=== PATIENT | female | born 1965 | race Caucasian/White ===

== ENCOUNTER 2019-02-14 18:03 | Emergency (ER) | payer OTHER ==
[2019-02-14 18:22] VITALS: BP 148/86; PULSE 95; TEMP 99; BMI 25.1
--- NOTE | 2019-02-14 18:23 | PDOC ---
History of Present Illness - General Chief Complaint: Injury Stated Complaint: LEFT HAND INJURY Time Seen by Provider: 02/14/19 18:12 - History of Present Illness Initial Comments: 02/14/19 18:16 53F with pmh of PA on Clopidogrel, HTN and HLD presents to the ED after fall on her left hand 5 days ago while playing softball. She iced her hand the next couple days but stopped after that. She played softball again yesterday and her hand was much more red and swollen today. She denies injuring herself yesterday. She uses her left hand to catch the ball. She is right handed. Denies taking anything for the pain. Did not injure anything else when she fell 5 days ago. Smokes 1 pack a day for the past 30 years. Occasional alcohol use, no recreational drug use. Past History - Past Medical History Allergies/Adverse Reactions: Allergies Allergy/AdvReac Type Severity Reaction Status Date / Time Penicillins Allergy Intermediate Rash Verified 02/14/19 18:03 Home Medications: Ambulatory Orders Aspirin [ASA -] 325 mg PO DAILY 07/02/14 Clopidogrel Bisulfate [Plavix -] 75 mg PO DAILY 07/02/14 Metoprolol Succinate [Toprol XL -] 25 mg PO BID 07/02/14 Atorvastatin Ca [Lipitor] 80 mg PO HS 02/14/19 Cardiac Disorders: Yes (CAD, PA) COPD: No HTN: Yes Hypercholesterolemia: Yes - Surgical History Cardiac Surgery: Yes (cardiac stent) - Immunization History Td Vaccination: No Immunization Up to Date: Yes - Suicide/Smoking/Psychosocial Hx Smoking Status: Yes Smoking History: Current every day smoker Have you smoked in the past 12 months: Yes Number of Cigarettes Smoked Daily: 20 Information on smoking cessation initiated: Yes Hx Alcohol Use: (occasional) Review of Systems - Review of Systems Able to Perform ROS?: Yes Is the patient limited [place] Islander proficient: No Constitutional: No: Symptoms Reported HEENTM: No: Symptoms Reported Respiratory: No: Symptoms reported Cardiac (ROS): No: Symptoms Reported ABD/GI: No: Symptoms Reported : No: Symptoms Reported Musculoskeletal: Yes: See HPI Integumentary: No: Symptoms Reported Neurological: No: Symptoms reported All Other Systems: Reviewed and Negative *Physical Exam - Vital Signs Last Vital Signs Temp Pulse Resp BP Pulse Ox 99 F 95 H 18 148/86 97 02/14/19 18:03 02/14/19 18:03 02/14/19 18:03 02/14/19 18:03 02/14/19 18:03 - Physical Exam General Appearance: Yes: Nourished, Appropriately Dressed. No: Apparent Distress HEENT: positive: EOMI, KIZZY, Pharynx Normal Respiratory/Chest: positive: Lungs Clear, Normal Breath Sounds. negative: Chest Tender, Respiratory Distress Cardiovascular: positive: Regular Rhythm, Regular Rate, S1, S2 Gastrointestinal/Abdominal: positive: Normal Bowel Sounds, Flat, Soft. negative : Tender Extremity: positive: Other (swollen left hand with hematoma over 2nd metacarpophalangeal joint and discoloration of the skin over the fingers of the dorsal aspect of the hand. Unable to close her hand into a fist fully, tender palpation of the hematoma. ) Integumentary: positive: Swelling (left hand), Ecchymosis (left hand) Neurologic: positive: Fully Oriented, Alert, Normal Mood/Affect, Normal Response ED Treatment Course - RADIOLOGY Radiology Studies Ordered: Category Date Time Status HAND- LEFT [RAD] Stat Radiology 02/14/19 18:12 Ordered Medical Decision Making - Medical Decision Making 02/14/19 18:24 53F with left hand swelling and hematoma s/p fall 5 days ago. Will obtain xray of the left hand to r/o fracture. Swelling and discoloration likely due to anticoagulation therapy. 02/14/19 19:28 xray negative for fracture. Ok to discharge with ortho referral if symptoms worsen. *DC/Admit/Observation/Transfer Diagnosis at time of Disposition: Traumatic hematoma of hand - Discharge Dispostion Disposition: HOME Condition at time of disposition: Stable Decision to Admit order: No - Referrals Referrals: Dalton Wilcox MD [Staff Physician] - - Patient Instructions Printed Discharge Instructions: The Hard Facts About Softball Injuries Additional Instructions: Come back to the emergency department for any new, worsening or concerning symptoms,. Follow up with Dr. Wilcox if symptoms do not resolve after next week. Continue ICE and Tylenol every 4 hours for pain. Refrain from playing softball until symptoms resolve. - Post Discharge Activity
--- NOTE | 2019-02-14 19:33 | PDOC ---
*Physical Exam - Vital Signs Last Vital Signs Temp Pulse Resp BP Pulse Ox 99 F 95 H 18 148/86 97 02/14/19 18:03 02/14/19 18:03 02/14/19 18:03 02/14/19 18:03 02/14/19 18:03 Progress Note - Progress Note Progress Note: Care of this patient received from . Patient examined: Edema/tenderness especially centered around second MCP/second metacarpal. No snuffbox tenderness Left hand x-ray performed: Preliminary interpretation by markel evidence of fracture or dislocation Results discussed with the patient. Lemuel wrap applied to hand. Patient will follow-up with Dr. Wilcox if she has persistent pain/swelling. Meanwhile, she will continue ice/elevation for the next few days and as well as Lemuel wrap during the day. *DC/Admit/Observation/Transfer Diagnosis at time of Disposition: Traumatic hematoma of hand - Discharge Dispostion Disposition: HOME Condition at time of disposition: Stable - Referrals Referrals: Dalton Wilcox MD [Staff Physician] - 1 week - Patient Instructions Printed Discharge Instructions: The Hard Facts About Softball Injuries Additional Instructions: Come back to the emergency department for any new, worsening or concerning symptoms,. Follow up with Dr. Wilcox if symptoms do not resolve after next week. Continue ICE and Tylenol every 4 hours for pain. Lemuel wrap during the day for the next 2 days(take off at night) Refrain from playing softball until symptoms resolve. - Post Discharge Activity
--- NOTE | 2019-02-15 09:42 | PDOC ---
Documentation entered by Camilla Hernandez SCRIBE, acting as scribe for Noelle Medina MD. Noelle Medina MD: This documentation has been prepared by the David swanson Aiswarya, SCRIBE, under my direction and personally reviewed by me in its entirety. I confirm that the documentation accurately reflects all work, treatment, procedures, and medical decision making performed by me. Attending Attestation - Resident Resident Name: Rodger Wolf - [facility] HPI: 02/14/19 18:59 The patient is a 53 year old female, with a significant PMH of HLD and HTN, who presents to the emergency department with left hand swelling that began 5 days ago. The patient states she fell on her left hand while playing softball and noticed ecchymosis and tenderness to the MCP joint. Patient reports pain and swelling has improved since then but reports purplish discoloration to the left palm and fingers. Denies any numbness or tingling. Able to move finger with slight discomfort to 5th digit. Denies any other injuries. Allergies: Penicillin Past surgical history: Cardiac stent Social history:Everyday smoker and drinks alcohol occasionally PCP: None reported - Physicial Exam PE: 02/14/19 19:00 GENERAL: Awake, alert, and fully oriented, in no acute distress HEAD: No signs of trauma EYES: PERRLA, EOMI, sclera anicteric, conjunctiva clear LUNGS: Breath sounds equal, clear to auscultation bilaterally. No wheezes, and no crackles EXTREMITIES:+Full ROM 1-4 left hand digit. Slight pain on flexion to the 5th digit. No clubbing or cyanosis. No cords. NEUROLOGICAL: Cranial nerves II through XII grossly intact. Normal speech. SKIN: +left hand purplish discoloration with ecchymosis to the palm and fingers. 1 cm tenderness and swelling at MCP joint soft. - Medical Decision Making 02/15/19 09:35 Pt presents to the ED complaining of resolving swelling and ecchymosis of the hand. dandy tender and swollen over the 5th mcp joint. Will check xray and discharge home if negative.
== END 2019-02-14 19:38 | disposition home or self-care (01) ==
LOC: FER 18:03
DX: M79.81 Nontraumatic hematoma of soft tissue (principal); I10 Essential (primary) hypertension; I25.10 Atherosclerotic heart disease of native coronary artery without angina pectoris; I25.2 Old myocardial infarction; E78.5 Hyperlipidemia, unspecified; F17.210 Nicotine dependence, cigarettes, uncomplicated; Z95.5 Presence of coronary angioplasty implant and graft
CPT/HCPCS: 73130-TC-LT-FY; 99282-25